=== PATIENT | female | born 1975 | race African-American/Black ===

== ENCOUNTER 2016-12-28 12:59 | Emergency (ER) | payer SELFPAY ==
[2016-12-28] MEDS ORDERED: ONDANSETRON 4 MG TAB.RAPDIS PO ONE (13:16)
[2016-12-28] MEDS ORDERED: IBUPROFEN 800 MG TABLET PO ONE (13:16)
--- NOTE | 2016-12-28 13:17 | ER Document Report ---
HPI - HPI Patient complains to provider of: low back and knee pain Onset: Yesterday - Evening 10 PM Quality of pain: Achy Pain Level: 3 Context: 41 year-old obese female slipped on a floor at [employer] falling on both knees last night at 10 PM. She is complaining of soreness across her low back with burning upper back, and mostly right anterior knee pain. No headache. Associated Symptoms: None Exacerbated by: Movement, Walking Relieved by: Denies Similar symptoms previously: No Recently seen / treated by doctor: No - ROS ROS below otherwise negative: Yes Systems Reviewed and Negative: Yes All other systems reviewed and negative - REPRODUCTIVE Reproductive: DENIES: : - DERM Skin Color: Normal Past Medical History - General Information source: Patient - Social History Smoking Status: Never Smoker Frequency of alcohol use: None Drug Abuse: None Lives with: Family Family History: Reviewed & Not Pertinent Patient has suicidal ideation: No Patient has homicidal ideation: No Renal/ Medical History: Denies: Hx Peritoneal Dialysis Musculoskeltal Medical History: Reports Hx Arthritis Psychiatric Medical History: Reports: Hx Depression Past Surgical History: Reports: Hx Appendectomy, Hx Section - x2, Hx Gynecologic Surgery - tube removed to remove for ectopic , Hx Tubal Ligation - Immunizations Hx Diphtheria, Pertussis, Tetanus Vaccination: Yes Vertical Provider Document - CONSTITUTIONAL Agree With Documented VS: Yes Exam Limitations: No Limitations - INFECTION CONTROL TRAVEL OUTSIDE OF THE [place] IN LAST 30 DAYS: No - HEENT HEENT: Normocephalic - NECK Neck: Supple - RESPIRATORY O2 Sat by Pulse Oximetry: 97 - BACK Back: Normal Inspection Notes: Mild tender lumbar and thoracic muscles bilateral. Non- Tender spine. - MUSCULOSKELETAL/EXTREMETIES Musculoskeletal/Extremeties: MAEW, FROM, Tender - Anterior right knee which is not swollen. No effusion, No Edema Notes: Nontender femurs and tibias - NEURO Level of Consciousness: Awake, Alert Motor/Sensory: No Motor Deficit, No Sensory Deficit - DERM Integumentary: Warm, Dry, No Rash Course - Re-evaluation Re-evalutation: 12/28/16 13:16 Patient is able to take Motrin. She has eaten today. 12/28/16 14:54 Patient states she really helped the patient and she does not want crutches she has some at home she wants to be off work until Ivanna. X-ray is negative 12/28/16 14:56 - Vital Signs Vital signs: Temp Pulse Resp BP Pulse Ox 98.9 F 74 18 138/40 H 97 12/28/16 13:04 12/28/16 13:04 12/28/16 13:04 12/28/16 13:04 12/28/16 13:04 Discharge - Discharge Clinical Impression: right knee contusion, back strain from fall Condition: Good Disposition: HOME, SELF-CARE Instructions: Contusion ([facility]), Acetaminophen, Anti-Inflammatory Medication ([facility] ) Additional Instructions: elevate ice or heat whichever feels better Return to the emergency room any concerns Please complete the patient satisfaction survey if you get one, and return it.. If you do not receive a survey, then you can go to the [facility] website, [email or web address] and place your comments about your very good care. Thank you very much. It was a pleasure being your medical provider today. Prescriptions: Ibuprofen [Motrin 800 mg Tablet] 800 mg PO Q8HP PRN #30 tablet PRN Reason: Forms: Return to Work
[2016-12-28 15:08] VITALS: BP 113/69
== END 2016-12-28 15:09 | disposition home or self-care (01) ==
LOC: ER 12:59
DX: S80.01XA Contusion of right knee, initial encounter (principal); S29.012A Strain of muscle and tendon of back wall of thorax, initial encounter; W01.0XXA Fall on same level from slipping, tripping and stumbling without subsequent striking against object, initial encounter; Y92.511 Restaurant or cafe as the place of occurrence of the external cause; Z98.51 Tubal ligation status
CPT/HCPCS: 99283; 73564; S0119

== ENCOUNTER 2017-01-17 14:52 | Emergency (ER) | payer SELFPAY ==
--- NOTE | 2017-01-17 15:48 | ER Document Report ---
ED General - General Chief Complaint: Breast Problem Stated Complaint: BREAST PAIN Time Seen by Provider: 01/17/17 15:44 Mode of Arrival: Ambulatory Information source: Patient Notes: Patient is a 41 year old female who presents with small area of infection to her left breast that started 2 days ago. She states she had a piercing there which she had to remove while visiting a friend in [place] because it was setting the metal detectors off. 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 She states that she has noticed a small amount of discharge from her nipple when she squeezes on it but minimal discharge from the actual area where the piercing was. She denies any erythema, warmth, swelling to the area or to her left breast. Denies any fever or chills. She has not taken any medication for this. TRAVEL OUTSIDE OF THE [place] IN LAST 30 DAYS: No - Related Data Allergies/Adverse Reactions: aspirin [Aspirin] Adverse Reaction (Verified 01/17/17 14:56) upset stomach Past Medical History - General Information source: Patient - Social History Smoking Status: Unknown if Ever Smoked Family History: Reviewed & Not Pertinent Patient has suicidal ideation: No Patient has homicidal ideation: No Renal/ Medical History: Denies: Hx Peritoneal Dialysis Musculoskeltal Medical History: Reports Hx Arthritis Psychiatric Medical History: Reports: Hx Depression Past Surgical History: Reports: Hx Appendectomy, Hx Section - x2, Hx Gynecologic Surgery - tube removed to remove for ectopic , Hx Tubal Ligation - Immunizations Hx Diphtheria, Pertussis, Tetanus Vaccination: Yes Review of Systems - Review of Systems Constitutional: See HPI EENT: No symptoms reported Cardiovascular: No symptoms reported Respiratory: No symptoms reported Gastrointestinal: No symptoms reported Genitourinary: No symptoms reported Female Genitourinary: No symptoms reported Musculoskeletal: No symptoms reported Skin: See HPI Hematologic/Lymphatic: No symptoms reported Neurological/Psychological: No symptoms reported Physical Exam - Vital signs Vitals: Temp Pulse Resp BP Pulse Ox 99.0 F 68 15 137/81 H 99 01/17/17 14:58 01/17/17 14:58 01/17/17 14:58 01/17/17 14:58 01/17/17 14:58 Interpretation: Hypertensive - Notes Notes: PHYSICAL EXAM: CONSTITUTIONAL: Alert and oriented, well-appearing and in no acute distress. HENT: Normocephalic, atraumatic. Trachea midline. Uvula midline. Moist mucous membranes. EYES: Pupils equal round and reactive to light, EOM intact. Sclera anicteric, conjunctiva are normal. No entrapment. NECK: supple without lymphadenopathy. No midline tenderness or paraspinous muscle spasms. No step-offs or deformities. ROM intact. HEART: Regular rate and rhythm without murmurs. LUNGS: CTAB and equal. No wheezes, rales or rhonchi. BREAST: small pinpoint area of erythema noted to tip of left nipple where piercing was (piercing has been removed). No evidence of erythema, drainage or bleeding to the wound. Breast tissue without swelling, warmth, erythema, LAD, drainage, bleeding or skin dimpling. BACK: nontender, no paraspinous spasm, 5+/5 strengths, DTRs 2+, SLR -. EXTREMITIES: Normal range of motion, no pitting edema. No cyanosis. Cap Refill < 3 seconds. NEURO: Cranial nerves grossly intact. Normal sensory/motor exams. PSYCH: Normal mood, normal affect. SKIN: Warm and dry. Normal turgor. No rashes or lesions noted. Course - Re-evaluation Re-evalutation: 01/17/17 15:59 Patient seen and examined. Small pinpoint area of erythema noted to tip of left nipple where piercing was (piercing has been removed). No evidence of erythema, drainage or bleeding to the wound. Breast tissue without swelling, warmth, erythema, LAD, drainage, bleeding or skin dimpling. Will treat with empiric oral antibiotics. Given return precautions and supportive care instructions. At this time, will discharge with return precautions and follow-up recommendations. Verbal discharge instructions given at the bedside and opportunity for questions given. Medication warnings reviewed. Patient is in agreement with this plan and has verbalized understanding of return precautions and the need for primary care follow-up in the next 24-72 hours. - Vital Signs Vital signs: Temp Pulse Resp BP Pulse Ox 99.0 F 68 15 137/81 H 99 01/17/17 14:58 01/17/17 14:58 01/17/17 14:58 01/17/17 14:58 01/17/17 14:58 Discharge - Discharge Clinical Impression: Local infection of wound, Body piercing Condition: Stable Disposition: HOME, SELF-CARE Additional Instructions: Take [id number] ibuprofen or Tylenol as directed. Keep the area clean and dry. You can apply Neosporin or [id number] triple antibiotic ointment to the area. I would not reinsert the piercing until this area has healed. Antibiotic Therapy You have been given an antibiotic prescription. It's important that you take all the medication, unless instructed otherwise by your physician. Failure to complete the entire course can result in relapse of your condition. Common side effects of antibiotics include nausea, intestinal cramping, or diarrhea. Women may develop vaginal yeast infections, and babies can get yeast (thrush) in the mouth following the use of antibiotics. Contact your physician if you develop significant side effects from this medication. Allergy to this antibiotic can result in hives, wheezing, faintness, or itching. If symptoms of allergy occur, stop the medication and call the doctor. Follow-Up Care Although no definite follow-up visit has been scheduled for you, you should return if there is unexpected worsening or a significant change in your symptoms. Prescriptions: Cephalexin Monohydrate [Keflex 500 mg Capsule] 500 mg PO Q6H 5 Days Forms: Elevated Blood Pressure
[2017-01-17 16:48] VITALS: BP 117/50
== END 2017-01-17 16:53 | disposition home or self-care (01) ==
LOC: ER 14:52
DX: T81.4XXA Infection following a procedure, initial encounter (principal); N64.4 Mastodynia
CPT/HCPCS: 99283

== ENCOUNTER 2017-04-22 15:58 | Emergency (ER) | payer SELFPAY ==
[2017-04-22] MEDS ORDERED: CEPHALEXIN 500 MG CAPSULE PO ONE (19:23)
[2017-04-22] MEDS ORDERED: SULFAMETHOXAZOLE/TRIMETHOPRIM 800-160 MG TABLET PO ONE (19:23)
--- NOTE | 2017-04-22 19:28 | ER Document Report ---
ED Breast Problem - General Chief Complaint: Breast Problem Stated Complaint: LEFT BREAST NIPPLE PAIN Time Seen by Provider: 04/22/17 18:16 Mode of Arrival: Ambulatory Information source: Patient Notes: 42-year-old female presented to ED for a small abscess on her left nipple where she pulled a nipple ring out and cholesterol through it and then pulled straw out and had an infection it was a small abscess on the medial side of the left nipple. TRAVEL OUTSIDE OF THE [place] IN LAST 30 DAYS: No - HPI Patient complains to provider of: Swelling, Tenderness, Other - Abscess to the medial side of the left nipple Onset: Other - Is been going on and off for about a month but this time it is become more sore. Onset/Duration: Intermittent Quality of pain: Sharp Severity: Moderate Pain Level: 4 Context: Piercing Discharge description: None Associated Symptoms: Other Similar symptoms previously: Yes Recently seen / treated by doctor: No - Related Data Allergies/Adverse Reactions: aspirin [Aspirin] Adverse Reaction (Verified 01/17/17 14:56) upset stomach Past Medical History - General Information source: Patient - Social History Smoking Status: Former Smoker Cigarette use (# per day): No Chew tobacco use (# tins/day): No Smoking Education Provided: No Frequency of alcohol use: Occasional Drug Abuse: Marijuana Occupation: none Lives with: Spouse/Significant other Family History: Arthritis, CAD, COPD, DM, Hyperlipidemia, Hypertension, Malignancy Patient has suicidal ideation: No Patient has homicidal ideation: No - Past Medical History Cardiac Medical History: Reports: None Pulmonary Medical History: Reports: None EENT Medical History: Reports: None Neurological Medical History: Reports: None Endocrine Medical History: Reports: None Renal/ Medical History: Reports: None Malignancy Medical History: Reports: None GI Medical History: Reports: None Musculoskeltal Medical History: Reports Hx Arthritis Skin Medical History: Reports None Psychiatric Medical History: Reports: Hx Anxiety, Hx Depression Traumatic Medical History: Reports: None Infectious Medical History: Reports: None Past Surgical History: Reports: Hx Appendectomy, Hx Section - x2, Hx Gynecologic Surgery - tube removed to remove for ectopic , Hx Tubal Ligation - Immunizations Hx Diphtheria, Pertussis, Tetanus Vaccination: Yes Review of Systems - Review of Systems Constitutional: No symptoms reported EENT: No symptoms reported Cardiovascular: No symptoms reported Respiratory: No symptoms reported Gastrointestinal: No symptoms reported Genitourinary: No symptoms reported Female Genitourinary: No symptoms reported Musculoskeletal: No symptoms reported Skin: Other - Abscess to medial left nipple Hematologic/Lymphatic: No symptoms reported Neurological/Psychological: No symptoms reported -: Yes All other systems reviewed and negative Physical Exam - Vital signs Vitals: Temp Pulse Resp BP Pulse Ox 99.1 F 77 15 144/86 H 100 04/22/17 16:47 04/22/17 16:47 04/22/17 16:47 04/22/17 16:47 04/22/17 16:47 Interpretation: Normal - General General appearance: Appears well, Alert - HEENT Head: Normocephalic, Atraumatic Eyes: Normal Pupils: PERRL - Respiratory Respiratory status: No respiratory distress Chest status: Nontender Breath sounds: Normal Chest palpation: Normal - Cardiovascular Rhythm: Regular Heart sounds: Normal auscultation Murmur: No - Abdominal Inspection: Normal Distension: No distension Bowel sounds: Normal Tenderness: Nontender Organomegaly: No organomegaly - Back Back: Normal, Nontender - Extremities General upper extremity: Normal inspection, Nontender, Normal color, Normal ROM , Normal temperature General lower extremity: Normal inspection, Nontender, Normal color, Normal ROM , Normal temperature, Normal weight bearing. No: Silvana's sign - Neurological Neuro grossly intact: Yes Cognition: Normal Orientation: AAOx4 [place] Coma Scale Eye Opening: Spontaneous [place] Coma Scale Verbal: Oriented [place] Coma Scale Motor: Obeys Commands Ana Coma Scale Total: 15 Speech: Normal Motor strength normal: LUE, RUE, LLE, RLE Sensory: Normal - Psychological Associated symptoms: Normal affect, Normal mood - Skin Skin Temperature: Warm Skin Moisture: Dry Skin Color: Normal Skin irregularity: Abscess - Left nipple medial side from a nipple piercing Irregularity with: Swelling, Tenderness Course - Vital Signs Vital signs: Temp Pulse Resp BP Pulse Ox 99.1 F 77 15 144/86 H 100 04/22/17 16:47 04/22/17 16:47 04/22/17 16:47 04/22/17 16:47 04/22/17 16:47 Procedures - Incision and Drainage Left medial nipple from piercing Type: Simple Anesthetic type: Other mL's of anesthetic: 0 Blade size: Other - 18-gauge needle I&D procedure: Betadine prep applied Incision Method: Incision made with needle Amount/type of drainage: Moderate amount of purulent drainage Discharge - Discharge Clinical Impression: abscess left nipple piercing Condition: Stable Disposition: HOME, SELF-CARE Instructions: Family Physicians / Practices Additional Instructions: CELLULITIS: You have an infection of your skin and underlying soft tissues called cellulitis. This is due to bacteria, which can enter through any break in the skin, or even through an irritated hair follicle. Untreated, cellulitis will usually worsen. Antibiotics are required. Usually, warm packs or warm soaks, and elevation of the infected area are recommended. You should start getting better within 24 to 36 hours. Most infections respond quickly to the right medication. Follow-up care is important, however, to check for abscess (boil) formation, unsuspected foreign body, or resistant infection. If you develop fever, chills, or if the area of infection is becoming rapidly more swollen or painful, call the doctor at once. Cephalexin The antibiotic you've been prescribed is a member of the cephalosporin class. This type of antibiotic covers a wide variety of infections, including those of the skin, lungs, and urinary tract. It's useful for staph infections. This antibiotic is slightly similar to the penicillin family. In rare cases , a person who is allergic to penicillin will also be allergic to this medication. If you have had a severe allergic reaction to penicillin, and have not taken this antibiotic since that time, notify your doctor. Antibiotics which cover many germs ("broad spectrum" antibiotics) are more likely to cause diarrhea or "yeast" infections. Women prone to vaginal yeast problems may suffer an attack after taking this antibiotic. In infants, oral thrush (white spots "stuck" on the cheek) or yeast diaper rash may result. See your doctor if these problems occur. Call at once if you develop itching, hives , shortness of breath, or lightheadedness. TRIMETHOPRIM-SULFA: You have been given a prescription for trimethoprim-sulfa (TMS, Septra, Bactrim). This is a combination antibiotic of the sulfa class, often used for urinary tract infections, middle ear infections, bronchitis, shigella intestinal infection, and Pneumocystis pneumonia. TMS is usually well-tolerated. Occasional side effects include nausea and decreased appetite. Septra is not recommended for infants less than two months of age. Do not take this medication if you have experienced severe side effects or allergy to sulfa medicine. You should stop this medicine at once and contact your physician if you develop any rash, joint pain, shortness of breath, bruising, or jaundice ( yellow color in the skin), or if you develop any other new or unusual symptoms. Epsom Salt Soaks Soak the wound area in a container of warm epsom salt water. If you can't get the wound area into a bucket or clayton, use a folded towel soaked in the epsom salt solution and apply to the area. Use clean hot tap water (about the temperature of a very warm bath), mixing in about one (1) teaspoon for every pint of water. Two gallon --> 16 teaspoons Epsom Salts One gallon --> 8 teaspoons Epsom Salts Two quarts --> 4 teaspoons Epsom Salts One quart --> 2 teaspoons Epsom Salts Soak the wound for about 20 minutes while gently moving it around in the water. Repeat this four (4) times a day. FOLLOW-UP CARE: If you have been referred to a physician for follow-up care, call the physician s office for an appointment as you were instructed or within the next two days. If you experience worsening or a significant change in your symptoms, notify the physician immediately or return to the Emergency Department at any time for re-evaluation. Prescriptions: Cephalexin Monohydrate [Keflex 500 mg Capsule] 500 mg PO QID #20 capsule Fluconazole [Diflucan] 150 mg PO ONCE PRN #1 tablet PRN Reason: Sulfamethoxazole/Trimethoprim [Septra-Ds 800-160 mg Tablet] 1 tab PO BID #14 tablet Forms: Elevated Blood Pressure
[2017-04-22 19:47] VITALS: BP 145/78
== END 2017-04-22 19:47 | disposition home or self-care (01) ==
LOC: ER 15:58
PROC: 0H9UXZZ (ICD-10-PCS; principal; 2017-04-22)
DX: N64.4 Mastodynia (principal); Z87.891 Personal history of nicotine dependence; N61.1 Abscess of the breast and nipple
CPT/HCPCS: 87070; 87075; 87077; 87205; 99283

== ENCOUNTER 2017-06-21 13:05 | Emergency (ER) | payer SELFPAY ==
--- NOTE | 2017-06-21 15:11 | RADIOLOGY REPORT (SQ) ---
EXAM DESCRIPTION: CHEST PA/LAT COMPLETED DATE/TIME: 06/21/2017 2:55 pm REASON FOR STUDY: cough COMPARISON: 03/09/2016 EXAM PARAMETERS: NUMBER OF VIEWS: two views TECHNIQUE: Digital Frontal and Lateral radiographic views of the chest acquired. RADIATION DOSE: NA LIMITATIONS: none FINDINGS: LUNGS AND PLEURA: No opacities, masses or pneumothorax. No pleural effusion. MEDIASTINUM AND HILAR STRUCTURES: No masses or contour abnormalities. HEART AND VASCULAR STRUCTURES: Heart normal size. No evidence for failure. BONES: No acute findings. HARDWARE: None in the chest. OTHER: No other significant finding. IMPRESSION: NO SIGNIFICANT RADIOGRAPHIC FINDING IN THE CHEST. TECHNICAL DOCUMENTATION: JOB ID: [id number] [employer]- All Rights Reserved
--- NOTE | 2017-06-21 15:29 | ER Document Report ---
HPI - HPI Patient complains to provider of: cough Onset: Other Onset/Duration: Persistent Severity: Mild Pain Level: 2 Context: Patient states she has had a cough almost every day for 4 months. Does occasionally have a runny nose. Patient admits to having seasonal allergies, but denies asthma. No fever Associated Symptoms: Nonproductive cough Exacerbated by: Coughing Relieved by: Denies Similar symptoms previously: No Recently seen / treated by doctor: No - ROS ROS below otherwise negative: Yes Systems Reviewed and Negative: Yes All other systems reviewed and negative - CONSTITUTIONAL Constitutional: DENIES: Fever - EENT EENT: REPORTS: Nasal Drainage-Clear - NEURO Neurology: DENIES: Headache - CARDIOVASCULAR Cardiovascular: DENIES: Chest pain - RESPIRATORY Respiratory: REPORTS: Coughing. DENIES: Trouble Breathing - GASTROINTESTINAL Gastrointestinal: DENIES: Abdominal Pain - URINARY Urinary: DENIES: Dysuria - REPRODUCTIVE Reproductive: DENIES: : - MUSCULOSKELETAL Musculoskeletal: DENIES: Extremity pain - DERM Skin Color: Normal Past Medical History - General Information source: Patient - Social History Smoking Status: Never Smoker Frequency of alcohol use: None Drug Abuse: Marijuana Lives with: Family Family History: Arthritis, CAD, COPD, DM, Hyperlipidemia, Hypertension, Malignancy Patient has suicidal ideation: No Patient has homicidal ideation: No Musculoskeltal Medical History: Reports Hx Arthritis Psychiatric Medical History: Reports: Hx Anxiety, Hx Depression Past Surgical History: Reports: Hx Appendectomy, Hx Section - x2, Hx Gynecologic Surgery - tube removed to remove for ectopic , Hx Tubal Ligation - Immunizations Hx Diphtheria, Pertussis, Tetanus Vaccination: Yes Vertical Provider Document - CONSTITUTIONAL Agree With Documented VS: Yes Exam Limitations: No Limitations General Appearance: WD/WN, No Apparent Distress - INFECTION CONTROL TRAVEL OUTSIDE OF THE [place] IN LAST 30 DAYS: No - HEENT HEENT: Atraumatic, Normal ENT Exam, Normocephalic - NECK Neck: Normal Inspection, Supple - RESPIRATORY Respiratory: Breath Sounds Normal, No Respiratory Distress O2 Sat by Pulse Oximetry: 98 - CARDIOVASCULAR Cardiovascular: Regular Rate, Regular Rhythm - MUSCULOSKELETAL/EXTREMETIES Musculoskeletal/Extremeties: MAEW - NEURO Level of Consciousness: Awake, Alert, Appropriate - DERM Integumentary: Warm, Dry, No Rash Course - Re-evaluation Re-evalutation: 06/21/17 15:34 X-rays were negative and discussed with patient - Vital Signs Vital signs: Temp Pulse Resp BP Pulse Ox 97.9 F 78 18 137/80 H 98 06/21/17 13:39 06/21/17 13:39 06/21/17 13:54 06/21/17 13:39 06/21/17 13:39 Discharge - Discharge Clinical Impression: Cough Seasonal allergies Qualifiers: Chronicity: acute Allergic rhinitis trigger: unspecified Qualified Code(s): J30.2 - Other seasonal allergic rhinitis Condition: Good Disposition: HOME, SELF-CARE Additional Instructions: Take meds as prescribed to include a daily antihistamine. Push fluids OTC Delsym or Robitussin for cough Chest x-ray was normal today, signs of pneumonia Follow-up with your doctor if not better in 1 week Return as needed Prescriptions: Cetirizine HCl [24Hour Allergy] 10 mg PO DAILY #30 tablet Prednisone [Deltasone 10 mg Tablet] 10 mg PO ASDIR PRN #21 tablet PRN Reason:
[2017-06-21 15:39] VITALS: BP 139/91
== END 2017-06-21 15:39 | disposition home or self-care (01) ==
LOC: ER 13:05
DX: J30.2 Other seasonal allergic rhinitis (principal); Z98.51 Tubal ligation status
CPT/HCPCS: 71020; 99283

== ENCOUNTER 2017-08-06 16:12 | Emergency (ER) | payer SELFPAY ==
--- NOTE | 2017-08-06 16:49 | ER Document Report ---
HPI - HPI Pain Level: 3 Notes: Patient is a 42-year-old female who presents ED complaining of an abscess to the left medial nipple that started yesterday. Patient states that she expressed the fluid out of the abscess yesterday and states improvement in her symptoms. Patient states that she does not have any more pain, or discharge. She has not noticed any redness or streaks. Patient states that she has been having intermittent issues with that left nipple becoming infected since she was incarcerated in January. Patient states that she had to take her piercings out while in residential so she put a straw in her nipple piercing to keep it open. Patient states that since then she has not been placing anything in that area and just allowing it to heal over. She denies any history of MRSA. She denies any other significant medical history. Patient reports drug allergies to aspirin, but no antibiotics. Denies any headache, fever, URI, sore throat, chest pain, palpitations, syncope, cough, shortness of breath, wheeze, dyspnea, abdominal pain, nausea/vomiting/diarrhea, urinary retention, dysuria, hematuria , or rash. - ROS Notes: REVIEW OF SYSTEMS: CONSTITUTIONAL : Denies fever, chills, or sweats. Denies recent illness. EENT: Denies eye, ear, throat, or mouth pain or symptoms. Denies nasal or sinus congestion or discharge. Denies throat, tongue, or mouth swelling or difficulty swallowing. CARDIOVASCULAR: Denies chest pain. Denies palpitations or racing or irregular heart beat. RESPIRATORY: Denies cough, cold, or chest congestion. Denies shortness of breath, difficulty breathing, or wheezing. GASTROINTESTINAL: Denies abdominal pain or distention. Denies nausea, vomiting , or diarrhea. GENITOURINARY: Denies difficulty urinating, painful urination, burning, frequency, blood in urine, or discharge. MUSCULOSKELETAL: Denies back or neck pain or stiffness. Denies joint pain or swelling. SKIN: see hpi NEUROLOGICAL: Denies confusion or altered mental status. Denies passing out or loss of consciousness. Denies dizziness or lightheadedness. Denies headache. Denies weakness or paralysis or loss of use of either side. Denies problems with gait or speech. Denies sensory loss, numbness, or tingling. ALL OTHER SYSTEMS REVIEWED AND NEGATIVE. Dictation was performed using [employer]ogram voice recognition software - REPRODUCTIVE Reproductive: DENIES: : Past Medical History - Social History Smoking Status: Unknown if Ever Smoked Family History: Arthritis, CAD, COPD, DM, Hyperlipidemia, Hypertension, Malignancy Renal/ Medical History: Denies: Hx Peritoneal Dialysis Musculoskeltal Medical History: Reports Hx Arthritis Psychiatric Medical History: Reports: Hx Anxiety, Hx Depression Past Surgical History: Reports: Hx Appendectomy, Hx Section - x2, Hx Gynecologic Surgery - tube removed to remove for ectopic , Hx Tubal Ligation - Immunizations Hx Diphtheria, Pertussis, Tetanus Vaccination: Yes Vertical Provider Document - CONSTITUTIONAL Agree With Documented VS: Yes Notes: PHYSICAL EXAMINATION: Accompanied by female PCT. GENERAL: Well-appearing, well-nourished and in no acute distress. Chest: Left breast/nipple: no erythema, induration, streaks, discharge, or abscess visualized. Non-tender to palp. No active infection present at this time. I did see the very small 0.1cm area where the abscess was yesterday (pt showed me a pic on her phone). LUNGS: Breath sounds clear to auscultation bilaterally and equal. No wheezes rales or rhonchi. HEART: Regular rate and rhythm without murmurs, rubs, gallops. ABDOMEN: Soft, nontender, nondistended abdomen. No guarding, no rebound. No masses appreciated. Normal bowel sounds present. No CVA tenderness bilaterally. Extremities: No cyanosis, clubbing, or edema b/l. Peripheral pulses 2+. Capillary refill less than 3 seconds. NEUROLOGICAL: Normal speech, normal gait. Normal sensory, motor exams PSYCH: Normal mood, normal affect. SKIN: see chest exam. Warm, Dry, normal turgor, no rashes or lesions noted. - INFECTION CONTROL TRAVEL OUTSIDE OF THE [place] IN LAST 30 DAYS: No - RESPIRATORY O2 Sat by Pulse Oximetry: 100 Course - Re-evaluation Re-evalutation: 08/06/17 16:48 Patient is an afebrile, well-hydrated, 42-year-old female who presents ED with a resolved/already expressed abscess to the left nipple. Vitals are stable. PE is otherwise unremarkable. No incision and drainage warranted at this time. No surgical consult is warranted at this time. I will send her home with a prescription for Keflex to take as directed as precautionary. I will also give her information for the general surgeon that she may call as this issue is becoming recurrent. Recheck with your PCM in 3-5 days. Return to the ED with any worsening/concerning symptoms otherwise as reviewed in discharge. Patient is in agreement. - Vital Signs Vital signs: Temp Pulse Resp BP Pulse Ox 98.8 F 88 18 147/80 H 100 08/06/17 16:16 08/06/17 16:16 08/06/17 16:16 08/06/17 16:16 08/06/17 16:16 Discharge - Discharge Clinical Impression: Abscess of left nipple Condition: Stable Disposition: HOME, SELF-CARE Instructions: Cephalexin ([facility]) Additional Instructions: Keep the skin clean Wash with soap and water Tylenol if needed Triple antibiotic ointment daily Take medication as directed Monitor for any worsening symptoms Recheck with your PCM in 3-5 days Consider consult with General Surgeon for ongoing/worsening symptoms Return to the ED with any worsening symptoms and/or development of fever, headache, chest pain, palpitations, syncope, shortness of breath, trouble breathing, abdominal pain, n/v/d, abscess, purulent discharge, red streaks, worsening swelling, or other worsening symptoms that are concerning to you. Prescriptions: Cephalexin Monohydrate [Keflex 500 mg Capsule] 500 mg PO TID #30 capsule Forms: Elevated Blood Pressure Referrals: ROXANN RICK MD [ACTIVE STAFF] - Follow up as needed
[2017-08-06 17:16] VITALS: BP 141/85
== END 2017-08-06 17:16 | disposition home or self-care (01) ==
LOC: ER 16:12
DX: N61.1 Abscess of the breast and nipple (principal)
CPT/HCPCS: 99282

== ENCOUNTER 2017-08-14 10:51 | Emergency (ER) | payer SELFPAY ==
--- NOTE | 2017-08-14 11:08 | ER Document Report ---
ED Oral Problem - General Chief Complaint: Jaw Pain Stated Complaint: LEFT JAW PAIN Time Seen by Provider: 08/14/17 10:57 Notes: 42 yo female c/o pain and swelling to right jaw x 2 days. hurts to chew. pt wears dentures. no fever, no sore throat, no gum swelling TRAVEL OUTSIDE OF THE [place] IN LAST 30 DAYS: No - HPI Patient complains to provider of: Jaw pain Onset: Yesterday Associated symptoms: None - Related Data Allergies/Adverse Reactions: aspirin [Aspirin] Adverse Reaction (Verified 08/06/17 16:16) upset stomach Past Medical History - General Information source: Patient - Social History Smoking Status: Never Smoker Frequency of alcohol use: None Drug Abuse: None Lives with: Family Family History: Arthritis, CAD, COPD, DM, Hyperlipidemia, Hypertension, Malignancy - Medical History Medical History: Negative Renal/ Medical History: Denies: Hx Peritoneal Dialysis Musculoskeltal Medical History: Reports Hx Arthritis Psychiatric Medical History: Reports: Hx Anxiety, Hx Depression Past Surgical History: Reports: Hx Appendectomy, Hx Section - x2, Hx Gynecologic Surgery - tube removed to remove for ectopic , Hx Tubal Ligation - Immunizations Hx Diphtheria, Pertussis, Tetanus Vaccination: Yes Review of Systems - Review of Systems Constitutional: No symptoms reported EENT: See HPI Cardiovascular: No symptoms reported Respiratory: No symptoms reported Gastrointestinal: No symptoms reported Genitourinary: No symptoms reported Female Genitourinary: No symptoms reported Musculoskeletal: No symptoms reported Skin: No symptoms reported Hematologic/Lymphatic: No symptoms reported Neurological/Psychological: No symptoms reported Physical Exam - Vital signs Interpretation: Normal - General General appearance: Appears well, Alert - HEENT Head: Normocephalic, Atraumatic Eyes: Normal Pupils: PERRL Ears: Normal Mouth/Lips: Other - + tenderness right TMJ. + induration and focal pain to angle of right jaw. no fluctuance Mucous membranes: Normal, Moist Pharynx: Normal Neck: Normal. No: Lymphadenopathy - Respiratory Respiratory status: No respiratory distress Chest status: Nontender Breath sounds: Normal Chest palpation: Normal - Cardiovascular Rhythm: Regular Heart sounds: Normal auscultation Murmur: No - Abdominal Inspection: Normal Distension: No distension Bowel sounds: Normal Tenderness: Nontender Organomegaly: No organomegaly - Back Back: Normal, Nontender - Extremities General upper extremity: Normal inspection, Nontender, Normal color, Normal ROM , Normal temperature General lower extremity: Normal inspection, Nontender, Normal color, Normal ROM , Normal temperature, Normal weight bearing. No: Silvana's sign - Neurological Neuro grossly intact: Yes Cognition: Normal Orientation: AAOx4 Ana Coma Scale Eye Opening: Spontaneous [place] Coma Scale Verbal: Oriented Ana Coma Scale Motor: Obeys Commands Ana Coma Scale Total: 15 Speech: Normal Motor strength normal: LUE, RUE, LLE, RLE Sensory: Normal - Psychological Associated symptoms: Normal affect, Normal mood - Skin Skin Temperature: Warm Skin Moisture: Dry Skin Color: Normal Course - Re-evaluation Re-evalutation: 08/14/17 11:53 no s/s ludwigs, peritonsillar abscess, no airway compromise. pt afebrile, nontoxic. Discharge - Discharge Clinical Impression: Jaw pain Condition: Stable Disposition: HOME, SELF-CARE Instructions: Antibiotic Therapy ([facility]), Ibuprofen (General) ([facility]), Ice Packs ( [facility]) Additional Instructions: take medications as prescribed apply cool compresses to area follow up with primary care if symptoms persist return to ER for any worsening Prescriptions: Clindamycin HCl 300 mg PO QID #28 capsule Ibuprofen [Motrin 800 Mg Tablet] 800 mg PO Q6H #20 tablet Forms: Return to School
== END 2017-08-14 11:45 | disposition home or self-care (01) ==
LOC: ER 10:51
DX: R68.84 Jaw pain (principal); R22.0 Localized swelling, mass and lump, head
CPT/HCPCS: 99283

== ENCOUNTER 2018-02-24 09:57 | Emergency (ER) | payer SELFPAY ==
[2018-02-24 10:01] VITALS: BP 142/97
--- NOTE | 2018-02-24 10:24 | ER Document Report ---
HPI - HPI Pain Level: 4 Notes: Patient is a 43-year-old female with no significant past medical history who presents to the ED complaining of left medial knee pain intermittently over the last 2-3 months after she started running on a treadmill. Patient states that over the last week she has had some increased soreness to the area. She has not noticed any swelling or redness. The pain does not radiate. Patient states that she is still able to ambulate without difficulties. Patient states that her pain is primarily there when she is weightbearing and not by the touch. Patient states that on occasion her knee feels like it may buckle on her. She has no other concerns or complaints at this time. Denies any headache , fever, URI, sore throat, chest pain, palpitations, syncope, cough, shortness of breath, wheeze, dyspnea, abdominal pain, nausea/vomiting/diarrhea, urinary retention, dysuria, hematuria, back pain, loss of control of bowel or bladder, numbness/tingling, saddle anesthesia, muscle paralysis/weakness, or rash. - ROS Systems Reviewed and Negative: Yes All other systems reviewed and negative - CONSTITUTIONAL Constitutional: DENIES: Fever, Chills - NEURO Neurology: DENIES: Headache - REPRODUCTIVE Reproductive: DENIES: : - MUSCULOSKELETAL Musculoskeletal: REPORTS: Extremity pain Past Medical History - Social History Smoking Status: Never Smoker Chew tobacco use (# tins/day): No Frequency of alcohol use: None Drug Abuse: Marijuana Family History: Arthritis, CAD, COPD, DM, Hyperlipidemia, Hypertension, Malignancy Patient has suicidal ideation: No Patient has homicidal ideation: No Renal/ Medical History: Denies: Hx Peritoneal Dialysis Musculoskeltal Medical History: Reports Hx Arthritis Psychiatric Medical History: Reports: Hx Anxiety, Hx Depression Past Surgical History: Reports: Hx Appendectomy, Hx Section - x2, Hx Gynecologic Surgery - tube removed to remove for ectopic , Hx Tubal Ligation - Immunizations Hx Diphtheria, Pertussis, Tetanus Vaccination: Yes Vertical Provider Document - CONSTITUTIONAL Agree With Documented VS: Yes Notes: PHYSICAL EXAMINATION: GENERAL: Well-appearing, well-nourished and in no acute distress. LUNGS: Breath sounds clear to auscultation bilaterally and equal. No wheezes rales or rhonchi. HEART: Regular rate and rhythm without murmurs, rubs, gallops. Musculoskeletal: Lt knee: No obvious swelling, ecchymosis, effusion, or deformity. FROM to passive/active and flexion >90 w/o difficulty or tenderness. Strength 5+/5. N/V intact distal. No bony tenderness. Ligamentous grossly stable, limited exam with larger leg size. Annel grossly negative. Patellar grind negative. No calf tenderness. Extremities: No cyanosis, clubbing, or edema b/l. Peripheral pulses 2+. Capillary refill less than 3 seconds. Silvana neg b/l. NEUROLOGICAL: Normal speech, normal gait. Normal sensory, motor exams PSYCH: Normal mood, normal affect. SKIN: Warm, Dry, normal turgor, no rashes or lesions noted. - INFECTION CONTROL TRAVEL OUTSIDE OF THE [place] IN LAST 30 DAYS: No Course - Re-evaluation Re-evalutation: 02/24/18 10:20 Patient is an afebrile, well-hydrated, 43-year-old female who presents to the ED with left knee pain. Vitals are acceptable without any significant tachycardia, tachypnea, or hypoxia. PE is otherwise unremarkable for any neurovascular compromise, obvious tendon/ligament rupture, obvious fracture/ dislocation, septic joint, DVT. Patient's presentation and symptomatology represents possible internal knee involvement. [place] knee rules were negative. Patient is able to ambulate around the room without difficulties. No other labs or imaging warranted at this time based on H&P. Reviewed with patient that she will need to schedule an appointment with orthopedics for further evaluation and management. Recheck with your PCM in 3-5 days. Return to the ED with any worsening/concerning symptoms otherwise as reviewed discharge. Patient is in agreement. - Vital Signs Vital signs: Temp Pulse Resp BP Pulse Ox 98.8 F 71 18 142/97 H 98 02/24/18 10:01 02/24/18 10:01 02/24/18 10:01 02/24/18 10:01 02/24/18 10:01 Discharge - Discharge Clinical Impression: Left knee pain Qualifiers: Chronicity: acute Qualified Code(s): M25.562 - Pain in left knee Condition: Stable Disposition: HOME, SELF-CARE Instructions: Ice & Elevation ([facility]) Additional Instructions: Rest, Ice, Compression, Elevation Tylenol/ibuprofen as needed Light stretches daily Strength exercises as able Moist heat and massage may help F/u with your PCP in 3-5 days for a recheck Schedule an appointment with orthopedics for further evaluation and management Return to the ED with any worsening symptoms and/or development of fever, headache, chest pain, palpitations, syncope, shortness of breath, trouble breathing, abdominal pain, n/v/d, muscle weakness/paralysis, numbness/tingling, swelling, redness, or other worsening symptoms that are concerning to you. Forms: Elevated Blood Pressure Referrals: [facility] [Provider Group] - Follow up as needed
== END 2018-02-24 10:32 | disposition home or self-care (01) ==
LOC: ER 09:57
DX: M25.562 Pain in left knee (principal)
CPT/HCPCS: 99283

== ENCOUNTER → 2018-03-23 | Outpatient (CLI) | payer OTHER ==
--- NOTE | 2018-03-23 09:22 | RADIOLOGY REPORT (SQ) ---
EXAM DESCRIPTION: MRI LT LOWER JOINT WITHOUT COMPLETED DATE/TIME: 03/23/2018 9:02 am REASON FOR STUDY: PAIN IN LEFT KNEE M25.562 PAIN IN LEFT KNEE COMPARISON: None. TECHNIQUE: Leftknee images acquired and stored on PACS. Multiplanar images include fat sensitive se quences as T1, water sensitive sequences as FST2 or STIR, cartilage sensitive sequences as FSPD, and gradient echo sequences. LIMITATIONS: None. FINDINGS: JOINT AND BURSAE: No effusion. BONE CORTEX AND MARROW: No alteration of signal to suggest marrow replacement. No worrisome bone lesi ons. No occult fracture. ACL: Intact. No degeneration or ganglion cyst. PCL: Intact. MCL: MCL bursal effusion. Intact MCL. LCL: Intact. No periligamentous edema or fluid. MEDIAL MENISCUS: No tears. No abnormal signal. LATERAL MENISCUS: No tears. No abnormal signal. MEDIAL COMPARTMENT: Focal small area cartilaginous loss medial femoral condyle weight-bearing surface . LATERAL COMPARTMENT: Cartilage preserved. No bone bruises or reactive marrow edema. No osteophytes. PATELLA: No chondromalacia. No subchondral cysts. Medial and lateral retinacula intact. EXTENSOR MECHANISM: Intact. Quadriceps and patella tendons normal. SOFT TISSUES: Adjacent muscles and subcutaneous tissues normal. Normal flow void in popliteal artery and vein. OTHER: No other significant finding. IMPRESSION: Fluid in the medial collateral ligament bursa. Minimal cartilaginous loss of the medial femoral condyles. TECHNICAL DOCUMENTATION: JOB ID: [id number] [employer]- All Rights Reserved Reading location - IP/workstation name: [email or web address]
== END ==
LOC: RAD 08:10
PROVIDERS: ATTEND Orthopaedic Surgery
DX: M25.562 Pain in left knee (principal)

== ENCOUNTER 2018-03-31 12:31 | Emergency (ER) | payer OTHER ==
[2018-03-31 12:50] VITALS: BP 158/85
--- NOTE | 2018-03-31 13:22 | RADIOLOGY REPORT (SQ) ---
EXAM DESCRIPTION: FOOT LEFT COMPLETE COMPLETED DATE/TIME: 03/31/2018 1:13 pm REASON FOR STUDY: left 1st digit pain COMPARISON: None. NUMBER OF VIEWS: Three views. TECHNIQUE: AP, lateral and oblique radiographic images acquired of the left foot. LIMITATIONS: None. FINDINGS: MINERALIZATION: Normal. BONES: No acute fracture or dislocation. Calcaneal spurs. JOINTS: No effusions. SOFT TISSUES: No soft tissue swelling. No foreign body. OTHER: No other significant finding. IMPRESSION: 1. No acute osseous findings. 2 Calcaneal spurs. TECHNICAL DOCUMENTATION: JOB ID: [id number] 1982[employer]- All Rights Reserved Reading location - IP/workstation name: [email or web address]
--- NOTE | 2018-03-31 13:25 | ER Document Report ---
HPI - HPI Pain Level: 2 Notes: Patient is a 43-year-old female with no significant past medical history who presents to the ED complaining of left medial great toe pain 1 month. Patient states that it all started when her grandson stepped on her toe at that time. Patient states that the pain does not radiate. Patient states that she primarily only has pain when she flexes her toe. The pain does not radiate. She has not noticed any swelling, bruising, or redness. No other concerns or complaints. Denies any headache, fever, URI, sore throat, chest pain, palpitations, syncope, cough, shortness of breath, wheeze, dyspnea, abdominal pain, nausea/vomiting/diarrhea, urinary retention, dysuria, hematuria, back pain , numbness/tingling, muscle paralysis/weakness, or rash. - ROS Systems Reviewed and Negative: Yes All other systems reviewed and negative - REPRODUCTIVE Reproductive: DENIES: : Past Medical History - Social History Smoking Status: Never Smoker Family History: Arthritis, CAD, COPD, DM, Hyperlipidemia, Hypertension, Malignancy Renal/ Medical History: Denies: Hx Peritoneal Dialysis Musculoskeletal Medical History: Reports Hx Arthritis Psychiatric Medical History: Reports: Hx Anxiety, Hx Depression Past Surgical History: Reports: Hx Appendectomy, Hx Section - x2, Hx Gynecologic Surgery - tube removed to remove for ectopic , Hx Tubal Ligation - Immunizations Hx Diphtheria, Pertussis, Tetanus Vaccination: Yes Vertical Provider Document - CONSTITUTIONAL Agree With Documented VS: Yes Notes: PHYSICAL EXAMINATION: GENERAL: Well-appearing, well-nourished and in no acute distress. LUNGS: Breath sounds clear to auscultation bilaterally and equal. No wheezes rales or rhonchi. HEART: Regular rate and rhythm without murmurs, rubs, gallops. Musculoskeletal: Lt foot/ankle: FROM to passive/active. Strength 5+/5. N/V intact distal. No bony tenderness of the foot/ankle/toes. Achilles intact. No ecchymosis, deformity, erythema, warmth, or swelling. I was able to elicit tenderness with flexion of the toe at the MTP joint. Extremities: No cyanosis, clubbing, or edema b/l. Peripheral pulses 2+. Capillary refill less than 3 seconds. NEUROLOGICAL: Normal speech, normal gait. Normal sensory, motor exams PSYCH: Normal mood, normal affect. SKIN: Warm, Dry, normal turgor, no rashes or lesions noted. - INFECTION CONTROL TRAVEL OUTSIDE OF THE [place] IN LAST 30 DAYS: No Course - Re-evaluation Re-evalutation: 03/31/18 13:27 Patient is an afebrile, well-hydrated, 43-year-old female who presents to the ED with left great toe pain which I suspect to be a sprain versus strain/ inflammatory. Vitals are acceptable without any significant tachycardia, tachypnea, or hypoxia. PE is otherwise unremarkable for any neurovascular compromise, obvious tendon/ligament rupture, obvious fracture/dislocation, septic joint. X-ray was unremarkable for any acute pathology. Patient is nontoxic-appearing. Patient is able to ambulate and weight-bear w/o difficulty. No other labs or imaging warranted at this time based on H&P. Conservative measures otherwise for symptoms. Recheck with your PCM in 3-5 days. Consider consult podiatry. Return to the ED with any worsening/ concerning symptoms otherwise as reviewed in discharge. Patient is in agreement. - Vital Signs Vital signs: Temp Pulse Resp BP Pulse Ox 98.7 F 72 18 158/85 H 97 03/31/18 12:49 03/31/18 12:49 03/31/18 12:49 03/31/18 12:49 03/31/18 12:49 Discharge - Discharge Clinical Impression: Toe pain, left Condition: Stable Disposition: HOME, SELF-CARE Additional Instructions: Rest, Ice, Compression, Elevation Tylenol/ibuprofen as needed Light stretches daily Strength exercises as able Moist heat and massage may help F/u with your PCP in 3-5 days for a recheck Consider consult(s) with podiatry for ongoing/worsening symptoms Return to the ED with any worsening symptoms and/or development of fever, headache, chest pain, palpitations, syncope, shortness of breath, trouble breathing, abdominal pain, n/v/d, muscle weakness/paralysis, numbness/tingling, swelling, redness, or other worsening symptoms that are concerning to you. Forms: Elevated Blood Pressure Referrals: AMBERLY PALMA DPM [ACTIVE STAFF] - Follow up as needed
== END 2018-03-31 13:45 | disposition home or self-care (01) ==
LOC: ER 12:31
DX: M79.675 Pain in left toe(s) (principal); W50.0XXA Accidental hit or strike by another person, initial encounter
CPT/HCPCS: 99283

== ENCOUNTER 2018-05-16 09:39 | Emergency (ER) | payer OTHER ==
--- NOTE | 2018-05-16 10:16 | ER Document Report ---
ED General - General Chief Complaint: Foot Pain Stated Complaint: PAIN IN TOES Time Seen by Provider: 05/16/18 10:03 Mode of Arrival: Ambulatory Information source: Patient Notes: 43-year-old female presents to ED for complaint of bilateral great toe, thumbs, and wrist pain and swelling to bilateral wrist. She states she has not fallen she has not injured any of these areas they just all have been aching off and on. The toes and fingers have been for over a month now. She states she does not have a primary care doctor and she does not have insurance. TRAVEL OUTSIDE OF THE [place] IN LAST 30 DAYS: No - HPI Onset: Other - chronic Onset/Duration: Persistent Quality of pain: Achy, Throbbing Severity: Moderate Pain Level: 4 Associated symptoms: Other Exacerbated by: Movement, Walking Relieved by: Denies Similar symptoms previously: Yes Recently seen / treated by doctor: No - Related Data Allergies/Adverse Reactions: aspirin [Aspirin] Adverse Reaction (Verified 03/31/18 13:17) upset stomach Past Medical History - General Information source: Patient - Social History Smoking Status: Never Smoker Cigarette use (# per day): No Chew tobacco use (# tins/day): No Smoking Education Provided: No Frequency of alcohol use: Rare Drug Abuse: Marijuana 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 Lives with: Family Family History: Arthritis, CAD, COPD, DM, Hyperlipidemia, Hypertension, Malignancy Patient has suicidal ideation: No Patient has homicidal ideation: No - Past Medical History Cardiac Medical History: Reports: None Pulmonary Medical History: Reports: None EENT Medical History: Reports: None Neurological Medical History: Reports: None Endocrine Medical History: Reports: None Renal/ Medical History: Reports: Hx Ectopic Malignancy Medical History: Reports: None GI Medical History: Reports: None Musculoskeletal Medical History: Reports Hx Arthritis, Reports Hx Musculoskeletal Deformity Skin Medical History: Reports None Psychiatric Medical History: Reports: Hx Anxiety, Hx Depression Traumatic Medical History: Reports: None Infectious Medical History: Reports: None Past Surgical History: Reports: Hx Appendectomy, Hx Section - x2, Hx Gynecologic Surgery - tube removed to remove for ectopic , Hx Tubal Ligation - Immunizations Hx Diphtheria, Pertussis, Tetanus Vaccination: Yes Review of Systems - Review of Systems Constitutional: No symptoms reported EENT: No symptoms reported Cardiovascular: No symptoms reported Respiratory: No symptoms reported Gastrointestinal: No symptoms reported Genitourinary: No symptoms reported Female Genitourinary: No symptoms reported Musculoskeletal: Other - Lateral great toe, thumb, and wrist pain Skin: No symptoms reported Hematologic/Lymphatic: No symptoms reported Neurological/Psychological: No symptoms reported -: Yes All other systems reviewed and negative Physical Exam - Vital signs Vitals: Temp Pulse Resp BP Pulse Ox 98.2 F 73 16 132/71 H 100 05/16/18 09:56 05/16/18 09:56 05/16/18 09:56 05/16/18 09:56 05/16/18 09:56 Interpretation: Normal - General General appearance: Appears well, Alert - HEENT Head: Normocephalic, Atraumatic Eyes: Normal Pupils: PERRL - Respiratory Respiratory status: No respiratory distress Chest status: Nontender Breath sounds: Normal Chest palpation: Normal - Cardiovascular Rhythm: Regular Heart sounds: Normal auscultation Murmur: No - Abdominal Inspection: Normal Distension: No distension Bowel sounds: Normal Tenderness: Nontender Organomegaly: No organomegaly - Back Back: Normal, Nontender - Extremities General upper extremity: Normal inspection, Nontender, Normal color, Normal ROM , Normal temperature General lower extremity: Normal inspection, Nontender, Normal color, Normal ROM , Normal temperature, Normal weight bearing. No: Silvana's sign Wrist: Normal, Tender Hand: Normal, No evidence of human bite, No evidence of FB, Other - Bilateral thumb Foot: Normal, Tender - Bilateral great toe, No evidence of FB Notes: No redness swelling or any abnormalities noted to the external area of the thumb great toe or wrist. - Neurological Neuro grossly intact: Yes Cognition: Normal Orientation: AAOx4 Ana Coma Scale Eye Opening: Spontaneous Ana Coma Scale Verbal: Oriented Ana Coma Scale Motor: Obeys Commands Liberty Coma Scale Total: 15 Speech: Normal Motor strength normal: LUE, RUE, LLE, RLE Sensory: Normal - Psychological Associated symptoms: Normal affect, Normal mood - Skin Skin Temperature: Warm Skin Moisture: Dry Skin Color: Normal Course - Vital Signs Vital signs: Temp Pulse Resp BP Pulse Ox 98.5 F 74 18 149/95 H 99 05/16/18 11:36 05/16/18 11:36 05/16/18 11:36 05/16/18 11:36 05/16/18 11:36 - Laboratory Result Diagrams: 05/16/18 10:10 - Diagnostic Test Radiology reviewed: Image reviewed, Reports reviewed Discharge - Discharge Clinical Impression: Bilateral thumb pain, Right wrist pain Chronic foot pain Qualifiers: Laterality: unspecified laterality Qualified Code(s): M79.673 - Pain in unspecified foot Condition: Stable Disposition: HOME, SELF-CARE Instructions: Use of [id number] Ibuprofen ([facility]) Additional Instructions: You have pain to both great toes, thumbs, and wrist. Denies any injury to any of these areas. I have completed your labs and given you a copy of the results. There is no evidence of gout at this time. All of the pains that you are experiencing could be arthritis. You have been referred to the care in [facility] and have been asked to go and fill out paper. Please fill out these papers so that they can follow-up with your care. I have applied a cock-up splint to the right wrist to decrease the motion of the wrist to try to help with your pain in your wrist. FOLLOW-UP CARE: If you have been referred to a physician for follow-up care, call the physician s office for an appointment as you were instructed or within the next two days. If you experience worsening or a significant change in your symptoms, notify the physician immediately or return to the Emergency Department at any time for re-evaluation. Forms: Elevated Blood Pressure, Return to Work Referrals: [facility] [Provider Group] - Follow up as needed
[2018-05-16 10:47] LABS: APPEARANCE,URINE SLIGHTLY-CLOUDY; BILIRUBIN,URINE NEGATIVE (NEGATIVE); COLOR,URINE YELLOW; GLUCOSE, URINE NEGATIVE (NEGATIVE); KETONES,URINE NEGATIVE (NEGATIVE); LEUKOCYTE ESTERASE,URINE NEGATIVE (NEGATIVE); NITRITE,URINE NEGATIVE (NEGATIVE); PROTEIN,URINE NEGATIVE (NEGATIVE); URINE SPECIFIC GRAVITY 1.018; UROBILINOGEN,URINE NEGATIVE mg/dL (<2.0)
[2018-05-16 10:59] LABS: ALANINE AMINOTRANSFERASE 24 U/L (9-52); ALBUMIN 3.9 g/dL (3.5-5.0); ALKALINE PHOSPHATASE 82 U/L (38-126); ANION GAP 9 (5-19); ASPARTATE AMINO TRANSFERASE 26 U/L (14-36); BILIRUBIN,DIRECT 0.4 mg/dL (0.0-0.4); BILIRUBIN,TOTAL 0.7 mg/dL (0.2-1.3); BLOOD UREA NITROGEN 12 mg/dL (7-20); CALCIUM 9.2 mg/dL (8.4-10.2); CARBON DIOXIDE 26 mmol/L (22-30); CHLORIDE 106 mmol/L (98-107); GLUCOSE 86 mg/dL (75-110); POTASSIUM 4.3 mmol/L (3.6-5.0); TOTAL PROTEIN 6.8 g/dL (6.3-8.2); URIC ACID 3.4 mg/dL (2.5-7.0)
[2018-05-16 11:37] VITALS: BP 149/95
== END 2018-05-16 11:37 | disposition home or self-care (01) ==
LOC: ER 09:39
DX: M79.645 Pain in left finger(s) (principal); M79.644 Pain in right finger(s); M79.671 Pain in right foot; M79.672 Pain in left foot; M25.531 Pain in right wrist; M25.532 Pain in left wrist; M79.89 Other specified soft tissue disorders
CPT/HCPCS: 99283; 36415; 84550; 80053; 81001; L3908

== ENCOUNTER 2018-05-31 00:39 | Emergency (ER) | payer OTHER ==
[2018-05-31] MEDS ORDERED: SULFAMETHOXAZOLE/TRIMETHOPRIM 800-160 MG TABLET PO ONE (02:56)
--- NOTE | 2018-05-31 02:58 | ER Document Report ---
ED General - General Chief Complaint: Abscess Stated Complaint: POSSIBLE ABSCESS LEFT BREAST Time Seen by Provider: 05/31/18 02:30 Notes: Patient presents with 1 week of a small, raised pustular lesion to the medial aspect of the left nipple. The patient reports that this area has been treated with a course of antibiotics that did not completely resolve the pain. She does note a constant, aching, stinging pain to the area. She notes touching the area worsens the pain. Nothing improves the pain. No history of similar symptoms in the past. She denies any fever or constitutional symptoms. She notes that it has not progressed but has also not resolved. TRAVEL OUTSIDE OF THE [place] IN LAST 30 DAYS: No - Related Data Allergies/Adverse Reactions: aspirin [Aspirin] Adverse Reaction (Verified 03/31/18 13:17) upset stomach Past Medical History - General Information source: Patient - Social History Smoking Status: Former Smoker Chew tobacco use (# tins/day): No Frequency of alcohol use: None Drug Abuse: None Family History: Arthritis, CAD, COPD, DM, Hyperlipidemia, Hypertension, Malignancy Patient has suicidal ideation: No Patient has homicidal ideation: No Renal/ Medical History: Reports: Hx Ectopic . Denies: Hx Peritoneal Dialysis Musculoskeletal Medical History: Reports Hx Arthritis, Reports Hx Musculoskeletal Deformity Psychiatric Medical History: Reports: Hx Anxiety, Hx Depression Past Surgical History: Reports: Hx Appendectomy, Hx Section - x2, Hx Gynecologic Surgery - tube removed to remove for ectopic , Hx Tubal Ligation - Immunizations Hx Diphtheria, Pertussis, Tetanus Vaccination: Yes Review of Systems - Review of Systems Notes: Constitutional: Negative for fever. HENT: Negative for sore throat. Eyes: Negative for visual changes. Cardiovascular: Negative for chest pain. Respiratory: Negative for shortness of breath. Gastrointestinal: Negative for abdominal pain, vomiting or diarrhea. Genitourinary: Negative for dysuria. Musculoskeletal: Negative for back pain. Skin: Positive for pustular lesion to the left breast Neurological: Negative for headaches, weakness or numbness. 10 point ROS negative except as marked above and in HPI. Physical Exam - Vital signs Vitals: Temp Pulse BP Pulse Ox 98.3 F 82 132/76 H 100 05/31/18 00:49 05/31/18 00:49 05/31/18 00:49 05/31/18 00:49 Notes: PHYSICAL EXAMINATION: GENERAL: Well-appearing, well-nourished and in no acute distress. HEAD: Atraumatic, normocephalic. EYES: Pupils equal round and reactive to light, extraocular movements intact, sclera anicteric, conjunctiva are normal. ENT: nares patent, oropharynx clear without exudates. Moist mucous membranes. NECK: Normal range of motion, supple without lymphadenopathy LUNGS: Breath sounds clear to auscultation bilaterally and equal. No wheezes rales or rhonchi. HEART: Regular rate and rhythm without murmurs Breast: There is a very small pustular lesion to the medial aspect of the nipple on the left without turning erythema or induration of the breast or nipple ABDOMEN: Soft, nontender, normoactive bowel sounds. No guarding, no rebound. No masses appreciated. EXTREMITIES: Normal range of motion, no pitting or edema. No cyanosis. NEUROLOGICAL: No focal neurological deficits. Moves all extremities spontaneously and on command. PSYCH: Normal mood, normal affect. SKIN: Warm, Dry, normal turgor, no rashes or lesions noted. Course - Re-evaluation Re-evalutation: 05/31/18 02:57 Patient presents with a very small pustular lesion on the medial aspect of her areola. Gentle pressure was applied to the area and approximately 0.5 mL's of purulent drainage was expressed. The patient does not have any surrounding cellulitis or evidence of more extensive breast abscess. She has been started on Bactrim. At this time will discharge with return precautions and follow-up recommendations. Verbal discharge instructions given a the bedside and opportunity for questions given. Medication warnings reviewed. Patient is in agreement with this plan and has verbalized understanding of return precautions and the need for primary care follow-up in the next 24-72 hours. - Vital Signs Vital signs: Temp Pulse Resp BP Pulse Ox 97.4 F 72 18 116/66 99 05/31/18 03:31 05/31/18 03:31 05/31/18 03:31 05/31/18 03:31 05/31/18 03:31 Discharge - Discharge Clinical Impression: Abscess of left nipple Condition: Good Disposition: HOME, SELF-CARE Additional Instructions: You were seen for an abscess that required drainage. Please clean this area with soap and water twice daily and apply a topical antibiotic. Dress the area after each cleaning. Please return if you develop fever, vomiting, the pain at the site worsens, you notice spreading redness from the area, or you have any other symptoms that are concerning to you. Prescriptions: Sulfamethoxazole/Trimethoprim [Bactrim Ds Tablet] 2 tab PO BID #28 tablet
[2018-05-31 03:32] VITALS: BP 116/66
== END 2018-05-31 03:32 | disposition home or self-care (01) ==
LOC: ER 00:39
DX: N61.1 Abscess of the breast and nipple (principal); Z87.891 Personal history of nicotine dependence
CPT/HCPCS: 99282

== ENCOUNTER 2019-01-22 16:59 | Emergency (ER) | payer OTHER ==
--- NOTE | 2019-01-22 17:57 | ER Document Report ---
ED Medical Screen (RME) - General Chief Complaint: Pain All Over Stated Complaint: JOINT PAIN Time Seen by Provider: 01/22/19 17:44 Mode of Arrival: Ambulatory Information source: Patient Notes: Patient is a 43-year-old female presented to the emergency department multiple complaints. Patient reports bilateral wrist pain and neck pain that has been going on for several months. She states it is been getting worse over the last few days. She also reports swelling in her bilateral hands, knees and wrists. She states that the left wrist is the worst. She also has hypertension, states that she has not gotten this checked out lately. Patient denies any nausea, vomiting or diarrhea. Denies any fevers. Exam: Bilateral radial pulses strong, equal alarm security or surveillance monitor strength bilaterally. I have greeted and performed a rapid initial assessment of this patient. A comprehensive ED assessment and evaluation of the patient, analysis of test results and completion of the medical decision making process will be conducted by additional ED providers. Dictation of this chart was performed using voice recognition software; therefore, there may be some unintended grammatical errors. TRAVEL OUTSIDE OF THE [place] IN LAST 30 DAYS: No - Related Data Allergies/Adverse Reactions: aspirin [Aspirin] Adverse Reaction (Verified 01/22/19 17:01) upset stomach Past Medical History - Social History Frequency of alcohol use: None Drug Abuse: Marijuana Renal/ Medical History: Reports: Hx Ectopic . Denies: Hx Peritoneal Dialysis Musculoskeltal Medical History: Reports Hx Arthritis, Reports Hx Musculoskeletal Deformity Psychiatric Medical History: Reports: Hx Anxiety, Hx Depression Past Surgical History: Reports: Hx Appendectomy, Hx Section - x2, Hx Gynecologic Surgery - tube removed to remove for ectopic , Hx Tubal Ligation - Immunizations Hx Diphtheria, Pertussis, Tetanus Vaccination: Yes Physical Exam - Vital signs Vitals: Temp Pulse Resp BP Pulse Ox 98.4 F 85 14 154/94 H 96 01/22/19 17:06 01/22/19 17:06 01/22/19 17:06 01/22/19 17:06 01/22/19 17:06 Course - Vital Signs Vital signs: Temp Pulse Resp BP Pulse Ox 98.4 F 85 14 154/94 H 96 01/22/19 17:06 01/22/19 17:06 01/22/19 17:06 01/22/19 17:06 01/22/19 17:06
[2019-01-22 18:22] LABS: ABSOLUTE EOSINOPHILS # (AUTO) 0.2 10^3/uL (0.0-0.6); ABSOLUTE LYMPHOCYTES (AUTO) 1.3 10^3/uL (0.5-4.7); ABSOLUTE MONOCYTES (AUTO) 0.5 10^3/uL (0.1-1.4); ABSOLUTE NEUT (AUTO) 3.8 10^3/uL (1.7-8.2); BASOPHILS % (AUTO) 0.4 % (0-2); EOSINOPHILS % (AUTO) 3.3 % (0-6); HEMOGLOBIN 13.2 g/dL (12.0-15.5); LYMPHOCYTES % (AUTO) 21.9 % (13-45); MEAN CORPUSCULAR HEMOGLOBIN 29.4 pg (27.0-33.4); MEAN CORPUSCULAR VOLUME 89 fl (80-97); MONOCYTES % (AUTO) 9.1 % (3-13); PLATELET COUNT 249 10^3/uL (150-450); RED BLOOD COUNT 4.49 10^6/uL (3.72-5.28); RED CELL DISTRIBUTION WIDTH 13.7 % (11.5-14.0); SEGMENTED NEUTROPHILS % (AUTO) 65.3 % (42-78); TOTAL CELLS COUNTED % (AUTO) 100 %; WHITE BLOOD COUNT 5.8 10^3/uL (4.0-10.5)
[2019-01-22 18:36] LABS: APPEARANCE,URINE SLIGHTLY-CLOUDY; BILIRUBIN,URINE NEGATIVE (NEGATIVE); COLOR,URINE AMBER; GLUCOSE, URINE NEGATIVE (NEGATIVE); KETONES,URINE TRACE mg/dL (NEGATIVE); LEUKOCYTE ESTERASE,URINE NEGATIVE (NEGATIVE); NITRITE,URINE NEGATIVE (NEGATIVE); PROTEIN,URINE NEGATIVE (NEGATIVE); URINE SPECIFIC GRAVITY 1.027; UROBILINOGEN,URINE NEGATIVE mg/dL (<2.0)
[2019-01-22 18:40] LABS: ALANINE AMINOTRANSFERASE 32 U/L (9-52); ALBUMIN 4.1 g/dL (3.5-5.0); ALKALINE PHOSPHATASE 85 U/L (38-126); ANION GAP 8 (5-19); ASPARTATE AMINO TRANSFERASE 29 U/L (14-36); BILIRUBIN,DIRECT 0.4 mg/dL (0.0-0.4); BILIRUBIN,TOTAL 0.6 mg/dL (0.2-1.3); BLOOD UREA NITROGEN 12 mg/dL (7-20); CALCIUM 9.8 mg/dL (8.4-10.2); CARBON DIOXIDE 32 mmol/L (22-30); CHLORIDE 103 mmol/L (98-107); GLUCOSE 85 mg/dL (75-110); POTASSIUM 3.7 mmol/L (3.6-5.0); SODIUM 142.8 mmol/L (137-145); TOTAL PROTEIN 7.1 g/dL (6.3-8.2)
--- NOTE | 2019-01-22 18:40 | RADIOLOGY REPORT (SQ) ---
EXAM DESCRIPTION: WRIST BILATERAL 2 VIEWS COMPLETED DATE/TIME: 01/22/2019 6:30 pm REASON FOR STUDY: pain bilateral wrists COMPARISON: None. NUMBER OF VIEWS: Two views. TECHNIQUE: AP and lateral radiographic images acquired of the right and left wrist. LIMITATIONS: None. FINDINGS: MINERALIZATION: Normal. BONES: No acute fracture or dislocation. No worrisome bone lesions. Normal alignment. SOFT TISSUES: No soft tissue swelling. No foreign body. OTHER: No other significant finding. IMPRESSION: NEGATIVE STUDY OF THE RIGHT AND LEFT WRISTS. NO RADIOGRAPHIC EVIDENCE OF ACUTE INJURY. TECHNICAL DOCUMENTATION: JOB ID: [id number] [employer]- All Rights Reserved Reading location - IP/workstation name: [email or web address]
[2019-01-22] MEDS ORDERED: PREDNISONE 10 MG TABLET PO ONE (22:00)
--- NOTE | 2019-01-22 22:03 | ER Document Report ---
ED General - General Chief Complaint: Pain All Over Stated Complaint: JOINT PAIN Time Seen by Provider: 01/22/19 17:44 Mode of Arrival: Ambulatory TRAVEL OUTSIDE OF THE [place] IN LAST 30 DAYS: No - HPI Patient complains to provider of: Joint pain, muscle weakness Onset: Last week Onset/Duration: Gradual, Persistent Severity: Moderate Pain Level: 3 Associated symptoms: None Exacerbated by: Denies Relieved by: Denies Similar symptoms previously: No Recently seen / treated by doctor: No Notes: Patient is a 43-year-old -[place] female coming in today with complaints of polyarthralgias and muscle weakness in her neck and upper back that been going on for at least a week. No unintended weight loss. No fevers or chills. She does not normally see a doctor but does not comment on any past medical history. She has been having pain in all of her joints. Occasionally having some swelling in her knees. She does not relate any family history of autoimmune diseases. - Related Data Allergies/Adverse Reactions: aspirin [Aspirin] Adverse Reaction (Verified 01/22/19 17:01) upset stomach Past Medical History - General Information source: Patient - Social History Smoking Status: Never Smoker Frequency of alcohol use: None Drug Abuse: Marijuana Family History: Arthritis, CAD, COPD, DM, Hyperlipidemia, Hypertension, Malignancy Patient has suicidal ideation: No Patient has homicidal ideation: No Renal/ Medical History: Reports: Hx Ectopic . Denies: Hx Peritoneal Dialysis Musculoskeletal Medical History: Reports Hx Arthritis, Reports Hx Musculoskeletal Deformity Psychiatric Medical History: Reports: Hx Anxiety, Hx Depression Past Surgical History: Reports: Hx Appendectomy, Hx Section - x2, Hx Gynecologic Surgery - tube removed to remove for ectopic , Hx Tubal Ligation - Immunizations Hx Diphtheria, Pertussis, Tetanus Vaccination: Yes Review of Systems - Review of Systems Notes: Constitutional: No fevers. No chills. No weight loss EENT: No eye redness. No eye pain. No ear pain. No sore throat. Cardiovascular: No chest pain. No palpitations. Respiratory: No cough. No shortness of breath. No respiratory distress. Gastrointestinal: No abdominal pain. No nausea, vomiting, or diarrhea. Genitourinary: Atraumatic. No lesions. No pain. No discharge. Musculoskeletal: Atraumatic. No swelling. No deformities. Positive for arthralgias Skin: No rash or lesions. Lymphatic: No swollen lymph nodes. Neurologic: No headache. No syncope. Psychiatric: No suicidal or homicidal ideation. Physical Exam - Vital signs Vitals: Temp Pulse Resp BP Pulse Ox 98.4 F 85 14 154/94 H 96 01/22/19 17:06 01/22/19 17:06 01/22/19 17:06 01/22/19 17:06 01/22/19 17:06 - Notes Notes: General: Well-developed, well-nourished. In no acute distress. Non-toxic appearing. Cardiac: Well-perfused. Regular rate and rhythm. No murmurs, rubs, or gallops. Pulmonary: No respiratory distress. No cyanosis. Bilateral lung fiels are clear to auscultation. Abdominal: Non-distended. Non-rigid. Bowels sounds are present in all four quadrants. No guarding or rebound. HEENT: Head is atraumatic. Conjunctivae not reddened. No tearing. PERRL. EOMI. Orbits atraumatic. No periorbital swelling or erythema. Oropharynx is without erythema, swelling, or exudates. Neck: Supple. No adenopathy. No meningismus. Dermatologic: Warm with good turgor. No rash. Atraumatic. Chest: Atraumatic. No chest wall tenderness to palpation. Musculoskeletal: Moves all extremities well. No range of motion deficits. no muscular or joint tenderness. No paraspinal muscle tenderness. no midline spinal tenderness or step-off. No erythema or swelling of any of the major joints. Genitourinary: Examination deferred Neurologic: No gross neurologic deficits. Psychiatric: Normal mood. Course - Re-evaluation Re-evalutation: 01/22/19 22:01 Patient with normal labs. Somewhat concerned that she could be experiencing some autoimmune pathology. She does not have a primary care doctor will give her [facility] and [facility] to follow-up with for further blood testing and possible rheumatologic referral. - Vital Signs Vital signs: Temp Pulse Resp BP Pulse Ox 98.4 F 85 14 154/94 H 96 01/22/19 17:06 01/22/19 17:06 01/22/19 17:06 01/22/19 17:06 01/22/19 17:06 - Laboratory Result Diagrams: 01/22/19 18:08 01/22/19 18:08 Laboratory results interpreted by me: 01/22/19 01/22/19 18:08 18:08 Carbon Dioxide 32 H Urine Ketones TRACE H Urine Ascorbic Acid 40 H Discharge - Discharge Clinical Impression: Polyarthralgia, Myalgia Condition: Good Disposition: HOME, SELF-CARE Instructions: Arthralgia ([facility]), Arthritis ([facility]) Additional Instructions: Please follow-up as soon as possible with 1 of the clinics given. They should be able to help you get checked out a little further it may also be able to refer you to a specialist at some point. Take the prednisone as directed for the next 5 days. Tylenol and Motrin as needed for additional pain Prescriptions: Prednisone [Deltasone 20 mg Tablet] 2 tab PO DAILY 5 Days #10 tablet Referrals: [facility] [Provider Group] - Follow up as needed [facility] [Provider Group] - Follow up as needed
[2019-01-22 22:04] VITALS: BP 148/76
== END 2019-01-22 22:35 | disposition home or self-care (01) ==
LOC: ER 16:59
DX: M25.50 Pain in unspecified joint (principal); M79.10 Myalgia, unspecified site; R53.1 Weakness
CPT/HCPCS: 99283; 36415; 85025; 80053; 81001; 73100; J7512

== ENCOUNTER 2020-05-14 20:33 | Emergency (ER) | payer SELFPAY ==
[2020-05-14 21:16] VITALS: BP 149/81
[2020-05-14] MEDS ORDERED: PREDNISONE 20 MG TABLET PO ONE (21:35)
[2020-05-14] MEDS ORDERED: VALACYCLOVIR HCL 500 MG TABLET PO ONE (21:36)
--- NOTE | 2020-05-14 22:18 | ER Document Report ---
ED General - General Chief Complaint: Facial Droop Stated Complaint: FACIAL DROOP Time Seen by Provider: 05/14/20 20:59 TRAVEL OUTSIDE OF THE [place] IN LAST 30 DAYS: No - HPI Patient complains to provider of: Right-sided facial droop Context: Patient is a 45-year-old female presenting via EMS complaining of right-sided facial droop and slurred speech. Patient states she noted onset of symptoms about 3 days ago when patient was initially seen at the [place] [facility] by triage, stroke screen was negative but facial droop remains. Patient denies headache, visual changes, upper lower extremity pain or weakness. Patient states that nothing seems to alleviate the symptoms and she has no prior history of the symptoms. Patient states she does have a small amount of drooling out of the right side of her mouth. Patient states symptoms started approximately 3 days ago with right-sided facial pain near her right ear that she describes as sharp. Patient has not taken any self treatment at home prior to presentation. Patient is also complaining of slurred speech. Associated symptoms: Other - See HPI Relieved by: Other - Nothing Similar symptoms previously: No - Related Data Allergies/Adverse Reactions: aspirin [Aspirin] Adverse Reaction (Verified 01/22/19 17:01) upset stomach Past Medical History - General Information source: Patient - Social History Smoking Status: Never Smoker Chew tobacco use (# tins/day): Yes Frequency of alcohol use: None Drug Abuse: Marijuana Family History: Reviewed & Not Pertinent, Arthritis, CAD, COPD, DM, Hyperlipidemia, Hypertension, Malignancy Patient has suicidal ideation: No Patient has homicidal ideation: No Endocrine Medical History: Denies: Hx Diabetes Mellitus Type 1, Hx Diabetes Mellitus Type 2 Renal/ Medical History: Reports: Hx Ectopic . Denies: Hx Peritoneal Dialysis Musculoskeletal Medical History: Reports Hx Arthritis, Reports Hx Musculoskeletal Deformity Psychiatric Medical History: Reports: Hx Anxiety, Hx Depression Past Surgical History: Reports: Hx Appendectomy, Hx Section - x2, Hx Gynecologic Surgery - tube removed to remove for ectopic , Hx Tubal Ligation - Immunizations Hx Diphtheria, Pertussis, Tetanus Vaccination: Yes Review of Systems - Review of Systems Constitutional: No symptoms reported EENT: Other - Facial pain. denies: Difficulty swallowing Cardiovascular: denies: Chest pain Respiratory: denies: Short of breath Gastrointestinal: No symptoms reported Genitourinary: No symptoms reported Female Genitourinary: No symptoms reported Musculoskeletal: No symptoms reported Skin: No symptoms reported Hematologic/Lymphatic: No symptoms reported Neurological/Psychological: Speech impairment, Other - Right-sided facial droop -: Yes All other systems reviewed and negative Physical Exam - Vital signs Vitals: Temp 99.2 F 05/14/20 20:34 - Notes Notes: CONSTITUTIONAL Vital signs reviewed. Patient is sitting up in bed, in no acute distress, talking to someone on her cell phone. Patient's speech is notably slurred. Patient is morbidly obese HEAD [Atraumatic, Normocephalic.] EYES , No discharge from eyes, Extraocular muscles intact, Sclera are normal, Conjunctiva are normal.] NECK [Normal ROM, No jugular venous distention, No meningeal signs, no carotid bruit.] RESPIRATORY CHEST [Chest is nontender, Breath sounds normal, No respiratory distress.] CARDIOVASCULAR [RRR, No murmurs, Normal S1 S2, No rub, No gallop.] ABDOMEN [Abdomen is nontender, No pulsatile masses, No other masses, Bowel sounds normal, No distension, No peritoneal signs, No hernias.] BACK [There is no CVA Tenderness, There is no tenderness to palpation, Normal inspection.] UPPER EXTREMITY [Inspection normal, No cyanosis, No clubbing, No edema, 2+ radial pulses.] LOWER EXTREMITY [Inspection normal, No cyanosis, No clubbing, No edema, No calf tenderness, 2+ femoral pulses.] NEURO: Left sided facial droop is present and involves the forehead. There is no loss of sensation in the patient's upper or lower extremities. Strength is grossly intact in upper and lower extremities bilaterally. Patient's speech is slurred.] SKIN [Skin is warm, Skin is dry, Skin is normal color.] LYMPHATIC [No adenopathy in neck.] PSYCHIATRIC [Normal affect. ] Course - Re-evaluation Re-evalutation: 05/14/20 22:31 Differential diagnosis CVA, TIA, Flor's palsy Medical decision making: At this time symptoms seem most consistent with Flor's palsy. However we will do a Noncon head CT to rule out the possibility of ischemic or hemorrhagic CVA. 05/14/20 23:40 Results of ED MSE discussed with patient. All questions were answered prior to discharge. Emergency signs and symptoms, reasons to return to the emergency department discussed with patient. Assessment and plan: Patient appears to have presentation consistent with Flor's palsy. Patient does not have medical insurance to help her pay for her medications. This MD is going to write patient a prescription for prednisone 60 mg a day for another 6 days as well as acyclovir 400 mg daily for 10 days. - Vital Signs Vital signs: Temp Pulse Resp BP Pulse Ox 99.2 F 68 16 149/81 H 98 05/14/20 20:34 05/14/20 20:40 05/14/20 20:40 05/14/20 20:40 05/14/20 20:40 - EKG Interpretation by Me Additional EKG results interpreted by me: 05/14/20 23:42 EKG obtained on 05/14/2020 at 2039 hrs. was interpreted by this MD. Findings: Normal sinus rhythm, rate 70, normal axis, P waves proceed QRS complexes UT interval within normal limits, QRS complex appears narrow, there are no obvious patterns of ST segment elevation or depression present to suggest acute myocardial ischemia or infarction. QTc is not prolonged. Impression normal sinus rhythm with no acute ST segment findings. Discharge - Discharge Clinical Impression: Flor's palsy Condition: Stable Disposition: HOME, SELF-CARE Instructions: Flor's Palsy ([facility]), Steroid Medication Additional Instructions: Return to the Emergency Department without delay if any worse. Use Lacri-Lube as directed in your right eye 4 times a day to keep your eye from getting dried out. HOME CARE INSTRUCTIONS & INFORMATION: Thank you for choosing us for your medical needs. We hope you're satisfied with the care you received. After you leave, you must properly care for your problem and, at the same time, observe its progress. Any condition can change. Some illnesses can change rapidly over hours or days. If your condition worsens, return to the Emergency Department or see your physician promptly. ABOUT YOUR X-RAYS AND EKG'S: If you had an EKG or X-rays taken, they have been read by the Emergency Physician. The X-rays and EKG's will also be read by a Radiologist or Auto Body Repairer within 24 hours. If discrepancies are noted, you will be notified by telephone. Please be certain the ED has a correct telephone number & address where you can be reached. Also, realize that some fractures or abnormalities do not show up on initial X-rays. If your symptoms continue, see your physician. ABOUT YOUR LABORATORY TEST: If you had laboratory tests, the results have been reviewed by the Emergency Physician. Some test results (for example cultures) may not be available for several days. You will be contacted if any test result shows you need additional treatment. Please be certain the ED has a correct telephone number and address where you can be reached. ABOUT YOUR MEDICATIONS: You will receive instructions on how to take your med icine on the prescription label you receive. Additional information may be provided by the Pharmacy. If you have questions afterwards, call the ED for clarification or further instructions. Some prescribed medications may cause drowsiness. Do not perform tasks such as driving a car or operating machinery without consulting your Pharmacist. If you feel you need a refill of pain medication, your condition will need re-evaluation. Please do not call for a refill of any medication. ABOUT YOUR SIGNATURE: Signature of this document acknowledges to followin. Understanding that you received emergency treatment and that you may be released before al medical problems are known or treated. Please be certain the ED has a correct phone number & address where you can be reached. 2. Acknowledgement that you will arrange for follow-up care as recommended. 3. Authorization for the Emergency Physician to provide information to your follow-up Physician in order to maximize your care. AT ANY TIME, IF YOUR SYMPTOMS CHANGE SIGNIFICANTLY OR WORSEN OR YOU DEVELOP NEW SYMPTOMS, RETURN TO THE EMERGENCY DEPARTMENT IMMEDIATELY FOR RE-EVALUATION. OUR GOAL IS TO PROVIDE EXCELLENT MEDICAL CARE! WE HOPE THAT WE HAVE MET YOUR EXPECTATIONS DURING YOUR EMERGENCY DEPARTMENT VISIT AND THAT YOU FEEL YOU HAVE RECEIVED EXCELLENT CARE! Prescriptions: Acyclovir [Acyclovir 400 mg Tablet] 400 mg PO 5XD 10 Days #50 tablet Prednisone [Deltasone 20 mg Tablet] 3 tab PO DAILY 6 Days #18 tablet Referrals: MEDHAT PENA MD [HONORARY] - Follow up as needed
--- NOTE | 2020-05-14 22:20 | RADIOLOGY REPORT (SQ) ---
EXAM DESCRIPTION: CT HEAD WITHOUT IV CONTRAST COMPLETED DATE/TME: 05/14/2020 21:34 CLINICAL HISTORY: 45 years, Female, right facial droop x 3 days COMPARISON: 12/29/2015 CT TECHNIQUE: 187 Images stored on PACS. All CT scanners at this facility use dose modulation, iterative reconstruction, and/or weight based dosing when appropriate to reduce radiation dose to as low as reasonably achievable (ALARA). [facility]: Dose Right [facility]: CareDose [facility]: Dose Right [facility]: Teradose 4D [facility]: [employer] LIMITATIONS: None. FINDINGS: The globes are intact. The paranasal sinuses and mastoid air cells are well aerated. No displaced or depressed skull fracture. No acute intracranial hemorrhage. CT is limited for evaluation of acute infarct. No CT evidence for large or territorial acute infarct. No mass. No midline shift IMPRESSION: Unremarkable unenhanced CT brain TECHNICAL DOCUMENTATION: Quality ID # 436: Final reports with documentation of one or more dose reduction techniques (e.g., Automated exposure control, adjustment of the mA and/or kV according to patient size, use of iterative reconstruction technique) copyright 2011 [employer]- All Rights Reserved
[2020-05-14] MEDS ORDERED: MINERAL OIL/PETROLATUM,WHITE OPH OINT 3.5 GM OD ONE (23:39)
--- NOTE | 2020-05-15 08:35 | EKG REPORT ---
SEVERITY:- NORMAL ECG - SINUS RHYTHM : Confirmed by: Jovan Cummins MD 15-May-2020 08:34:59
== END 2020-05-15 00:13 | disposition home or self-care (01) ==
LOC: ER 20:33
DX: G51.0 Bell's palsy (principal); R47.81 Slurred speech; Z88.8 Allergy status to other drugs, medicaments and biological substances
CPT/HCPCS: 93005; 99284; 70450; 93010; J7512; J3490

== ENCOUNTER 2020-09-15 12:02 | Emergency (ER) | payer SELFPAY ==
--- NOTE | 2020-09-15 13:29 | ER Document Report ---
ED Medical Screen (RME) - General Chief Complaint: Facial Droop Stated Complaint: FACIAL TINGLE Time Seen by Provider: 09/15/20 13:20 Mode of Arrival: Ambulatory Information source: Patient Notes: HPI; 45-year-old female past medical history significant for Flor's palsy in May 2020 presents to the emergency room complaining of worsening right- sided facial droop, inability to blink her right eye and slurred speech for the past 2 weeks. States that time symptoms involve both the right and the left side of her face. She denies any trauma or injury. States she was treated with prednisone and acyclovir in May which she completed her course of treatment. Has not followed up outpatient with her primary care physician or neurologist since being seen here in May or since her symptoms returned 2 weeks ago. She denies any chest pain, shortness of breath, no difficulty breathing. PE: Alert and oriented x3. Positive right-sided facial droop with slurring of speech noted. Remaining of fast exam is negative. [employer] strength equal and adequate bilaterally. Full sensation to painful stimuli bilaterally to the face, upper and lower extremities. Lungs: Clear to auscultation without rales, rhonchi, wheezes. Heart: Regular rate rhythm without murmurs, rubs, gallops. I have greeted and performed a rapid initial assessment of this patient. A comprehensive ED assessment and evaluation of the patient, analysis of test results and completion of the medical decision making process will be conducted by additional ED providers. I have specifically instructed the patient or family members with the patient to immediately return to any nursing staff should anything change in the patient's condition or with their chief complaint. TRAVEL OUTSIDE OF THE [place] IN LAST 30 DAYS: No - Related Data Allergies/Adverse Reactions: No Known Allergies Allergy (Verified 09/15/20 13:19) Past Medical History - Social History Drug Abuse: Marijuana Endocrine Medical History: Denies: Hx Diabetes Mellitus Type 1, Hx Diabetes Mellitus Type 2 Renal/ Medical History: Reports: Hx Ectopic . Denies: Hx Peritoneal Dialysis Musculoskeltal Medical History: Reports Hx Arthritis, Reports Hx Musculoskeletal Deformity Psychiatric Medical History: Reports: Hx Anxiety, Hx Depression Past Surgical History: Reports: Hx Appendectomy, Hx Section - x2, Hx Gynecologic Surgery - tube removed to remove for ectopic , Hx Tubal Ligation - Immunizations Hx Diphtheria, Pertussis, Tetanus Vaccination: Yes Physical Exam - Vital signs Vitals: Temp Pulse Resp BP Pulse Ox 97.5 F 61 18 156/83 H 100 09/15/20 12:08 09/15/20 12:08 09/15/20 12:08 09/15/20 12:08 09/15/20 12:08 Course - Vital Signs Vital signs: Temp Pulse Resp BP Pulse Ox 97.5 F 61 18 156/83 H 100 09/15/20 12:08 09/15/20 12:08 09/15/20 12:08 09/15/20 12:08 09/15/20 12:08
[2020-09-15 13:55] LABS: ABSOLUTE EOSINOPHILS # (AUTO) 0.2 10^3/uL (0.0-0.6); ABSOLUTE LYMPHOCYTES (AUTO) 1.1 10^3/uL (0.5-4.7); ABSOLUTE MONOCYTES (AUTO) 0.4 10^3/uL (0.1-1.4); ABSOLUTE NEUT (AUTO) 2.9 10^3/uL (1.7-8.2); BASOPHILS % (AUTO) 0.9 % (0-2); EOSINOPHILS % (AUTO) 4.2 % (0-6); HEMATOCRIT 34.2 % (36.0-47.0); HEMOGLOBIN 11.4 g/dL (12.0-15.5); LYMPHOCYTES % (AUTO) 23.9 % (13-45); MEAN CORPUSCULAR HEMOGLOBIN 29.3 pg (27.0-33.4); MEAN CORPUSCULAR HGB CONC 33.2 g/dL (32.0-36.0); MEAN CORPUSCULAR VOLUME 88 fl (80-97); MONOCYTES % (AUTO) 8.6 % (3-13); PLATELET COUNT 224 10^3/uL (150-450); RED BLOOD COUNT 3.88 10^6/uL (3.72-5.28); RED CELL DISTRIBUTION WIDTH 13.6 % (11.5-14.0); SEGMENTED NEUTROPHILS % (AUTO) 62.4 % (42-78); TOTAL CELLS COUNTED % (AUTO) 100 %; WHITE BLOOD COUNT 4.7 10^3/uL (4.0-10.5)
--- NOTE | 2020-09-15 14:03 | RADIOLOGY REPORT (SQ) ---
EXAM DESCRIPTION: CT HEAD WITHOUT IMAGES COMPLETED DATE/TIME: 09/15/2020 1:50 pm REASON FOR STUDY: facial droop COMPARISON: 05/14/2020. TECHNIQUE: Axial images acquired through the brain without intravenous contrast. Images reviewed wi th bone, brain and subdural windows. Additional sagittal and coronal reconstructions were generated. Images stored on PACS. All CT scanners at this facility use dose modulation, iterative reconstruction, and/or weight based d osing when appropriate to reduce radiation dose to as low as reasonably achievable (ALARA). [facility]: Dose Right [facility]: CareDose [facility]: Dose Right [facility]: Teradose 4D [facility]: [employer] RADIATION DOSE: CT Rad equipment meets quality standard of care and radiation dose reduction techniq ues were employed. CTDIvol: 53.2 mGy. DLP: 991 mGy-cm. mGy. LIMITATIONS: None. FINDINGS: VENTRICLES: Normal size and contour. CEREBRUM: No masses. No hemorrhage. No midline shift. No evidence for acute infarction. Normal gra y/white matter differentiation. No areas of low density in the white matter. CEREBELLUM: No masses. No hemorrhage. No alteration of density. No evidence for acute infarction. EXTRAAXIAL SPACES: No fluid collections. No masses. ORBITS AND GLOBE: No intra- or extraconal masses. Normal contour of globe without masses. CALVARIUM: No fracture. PARANASAL SINUSES: No fluid or mucosal thickening. SOFT TISSUES: No mass or hematoma. OTHER: No other significant finding. IMPRESSION: NORMAL BRAIN CT WITHOUT CONTRAST. EVIDENCE OF ACUTE STROKE: NO. COMMENT: Quality ID # 436: Final reports with documentation of one or more dose reduction techniques (e.g., Automated exposure control, adjustment of the mA and/or kV according to patient size, use of iterative reconstruction technique) TECHNICAL DOCUMENTATION: JOB ID: [id number] 2010 [employer]- All Rights Reserved Reading location - IP/workstation name: [email or web address]
[2020-09-15 14:16] LABS: ALBUMIN 3.4 g/dL (3.5-5.0); ALKALINE PHOSPHATASE 106 U/L (38-126); ASPARTATE AMINO TRANSFERASE 27 U/L (14-36); BILIRUBIN,DIRECT 0.3 mg/dL (0.0-0.4); BILIRUBIN,TOTAL 0.6 mg/dL (0.2-1.3); BLOOD UREA NITROGEN 6 mg/dL (7-20); CALCIUM 8.7 mg/dL (8.4-10.2); GLUCOSE 84 mg/dL (75-110); POTASSIUM 4.3 mmol/L (3.6-5.0); TOTAL PROTEIN 6.2 g/dL (6.3-8.2)
[2020-09-15 14:20] LABS: CARBON DIOXIDE 29 mmol/L (22-30); CHLORIDE 105 mmol/L (98-107)
[2020-09-15 14:23] LABS: ANION GAP 3 (5-19)
--- NOTE | 2020-09-15 17:44 | ER Document Report ---
ED General - General Chief Complaint: Facial Droop Stated Complaint: FACIAL TINGLE Time Seen by Provider: 09/15/20 13:20 Mode of Arrival: Ambulatory TRAVEL OUTSIDE OF THE [place] IN LAST 30 DAYS: No - HPI Notes: Chief complaint: Flor's palsy History of present illness: 45-year-old female previously seen here May 14, 2020 with new onset Flor's palsy and was treated with oral prednisone and acyclovir at that time. Symptoms gradually got better over several weeks. She is noted over the past 1 week she is having similar symptoms noting some mild i mpairment of ability to close her eye on the right side and some slight difficulty with speech and drinking due to facial muscle weakness on the right side as well as some mild right facial paresthesias and some soreness below her right earlobe. She is taking no regular medications. 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 She is not having any respiratory or GI symptoms. No fever chills. She does have some alteration of taste and says that she had this previously when she was diagnosed with Flor's palsy. - Related Data Allergies/Adverse Reactions: No Known Allergies Allergy (Verified 09/15/20 13:19) Past Medical History - General Information source: Patient - Social History Smoking Status: Never Smoker Drug Abuse: Marijuana Family History: Reviewed & Not Pertinent, Arthritis, CAD, COPD, DM, Hyperlipidemia, Hypertension, Malignancy Endocrine Medical History: Denies: Hx Diabetes Mellitus Type 1, Hx Diabetes Mellitus Type 2 Renal/ Medical History: Reports: Hx Ectopic . Denies: Hx Peritoneal Dialysis Musculoskeletal Medical History: Reports Hx Arthritis, Reports Hx Mu sculoskeletal Deformity Psychiatric Medical History: Reports: Hx Anxiety, Hx Depression Past Surgical History: Reports: Hx Appendectomy, Hx Section - x2, Hx Gynecologic Surgery - tube removed to remove for ectopic , Hx Tubal Ligation - Immunizations Hx Diphtheria, Pertussis, Tetanus Vaccination: Yes Review of Systems - Review of Systems Notes: Constitutional: Negative for fever. HENT: Negative for sore throat. Eyes: Negative for visual changes. Cardiovascular: Negative for chest pain. Respiratory: Negative for shortness of breath. Gastrointestinal: Negative for abdominal pain, vomiting or diarrhea. Genitourinary: Negative for dysuria. Musculoskeletal: Negative for back pain. Skin: Negative for rash. Neurological: As per HPI. 10 point ROS negative except as marked above and in HPI. Physical Exam - Vital signs Vitals: Temp Pulse Resp BP Pulse Ox 97.5 F 61 18 156/83 H 100 09/15/20 12:08 09/15/20 12:08 09/15/20 12:08 09/15/20 12:08 09/15/20 12:08 - Notes Notes: GENERAL: Obese middle-aged female appearing in no acute distress. SKIN: Good turgor no rashes. HEAD: Normocephalic atraumatic. EYES: PERRLA. EOMI. Conjunctivae and sclerae clear. EARS: CANALS AND TMS CLEAR. NOSE: CLEAR. MOUTH: Moist mucosa. Good dentition. No stridor or edema. No drooling. NECK: Supple. No masses or thyromegaly. No adenopathy. Carotids 2+ without bruits. No JVD. BACK: Symmetrical without tenderness. CHEST: Respirations unlabored. Breath sounds clear and symmetrical. HEART: Regular rhythm. No murmur gallop or rub. ABDOMEN: Obese. Soft nontender without masses, organomegaly or rebound. Bowel sounds normally active. No bruits. GENITALIA: Deferred. EXTREMITIES: No edema. No calf tenderness. Cap refill less than 1.5 seconds. Dorsalis pedis and posterior tibial pulses 3+ and symmetrical. NEUROLOGICAL: GCS 15. Alert and oriented x3. Normal gait. Fluent speech. Mild right-sided facial ptosis consistent with Flro's palsy. Sensorimotor and cerebellar normal. Normal tone. PSYCHIATRIC: Appropriate affect. Course - Re-evaluation Re-evalutation: 09/15/20 17:44 I explained to the patient about 15% of patients diagnosed with Flor's palsy will have some degree of recurrent symptoms over time. Because of her work as a beautician and her concern about Covid exposure as well as the wide array of potential neurologic symptoms associated with Covid infection I am going to get a Covid test for her today. Anticipate treating her outpatient with a second course of oral steroid and have her follow-up with primary care physician and neurologist. 09/15/20 18:58 Covid test is negative and patient has been so informed. Findings, clinical impression and plan of treatment have been discussed with patient/family. Understanding of current findings and recommendations has been acknowledged by them and there is agreement regarding disposition and follow-up. - Vital Signs Vital signs: Temp Pulse Resp BP Pulse Ox 97.5 F 61 18 156/83 H 100 09/15/20 12:08 09/15/20 12:08 09/15/20 12:08 09/15/20 12:08 09/15/20 12:08 - Laboratory Results Result Diagrams: 09/15/20 13:38 09/15/20 13:38 Laboratory Results Interpreted: 09/15/20 09/15/20 13:38 13:38 Hgb 11.4 L Hct 34.2 L Anion Gap 3 L BUN 6 L Total Protein 6.2 L Albumin 3.4 L Critical Laboratory Results Reviewed: No Critical Results - Radiology Results Radiology Results Interpreted: 09/15/20 19:[address] 09/15/20 13:26 IMPRESSION: NORMAL BRAIN CT WITHOUT CONTRAST. EVIDENCE OF ACUTE STROKE: NO. Critical Radiology Results Reviewed: No Critical Results Discharge - Discharge Clinical Impression: Flor's palsy Condition: Stable Disposition: HOME, SELF-CARE Instructions: Flor's Palsy ([facility]), Steroid Medication Additional Instructions: Take prescribed medication as directed. Use lubricant drops in the right eye at bedtime and throughout the day as needed. Follow-up with your primary care physician. I have also provided you the name of a neurologist for additional follow-up. You may return here as needed for new or worsening symptoms. Prescriptions: Prednisone [Deltasone 20 mg Tablet] 2 tab PO DAILY 5 Days tablet Referrals: SOL BELL MD [NO LOCAL MD] - Follow up as needed
[2020-09-15 19:46] VITALS: BP 139/84
--- NOTE | 2020-09-15 23:55 | EKG REPORT ---
SEVERITY:- NORMAL ECG - SINUS RHYTHM : Confirmed by: Ronit Rooney 15-Sep-2020 23:54:33
== END 2020-09-15 19:44 | disposition home or self-care (01) ==
LOC: ER 12:02
DX: G51.0 Bell's palsy (principal); Z20.822 Contact with and (suspected) exposure to COVID-19; R43.9 Unspecified disturbances of smell and taste; F12.10 Cannabis abuse, uncomplicated; E66.9 Obesity, unspecified
CPT/HCPCS: 93005; 99285; 36415; 84703; 85025; 0202U ×23; 80053; 84484; 70450; 93010